=== PATIENT | male | born 1975 | race African-American/Black ===

== ENCOUNTER 2018-11-28 08:52 | Emergency (ER) | payer SELFPAY ==
[~2018-11-28] VITALS: Ht 170.2 cm; Wt 70.0 kg
[2018-11-28 08:54] VITALS: BP 127/89
== END 2018-11-28 09:11 | disposition left against medical advice (07) ==
LOC: ER 08:52
DX: Z53.21 Procedure and treatment not carried out due to patient leaving prior to being seen by health care provider (principal)